=== PATIENT | female | born 1995 | race Caucasian/White ===

== ENCOUNTER 2017-03-07 10:44 | Outpatient (CLI) | payer BC ==
[2017-03-07 13:04] LABS: RUPTURE FETAL MEMBRANES POSITIVE (NEGATIVE)
== END 2017-03-07 18:45 | disposition home or self-care (01) ==
LOC: OBT 10:44 → L-D 10:44 → OBT 18:45
DX: O26.893 Other specified pregnancy related conditions, third trimester (principal); Z3A.38 38 weeks gestation of pregnancy; T17.990A Other foreign object in respiratory tract, part unspecified in causing asphyxiation, initial encounter; X58.XXXA Exposure to other specified factors, initial encounter
CPT/HCPCS: 76815; 84112

== ENCOUNTER 2017-03-08 03:18 | Inpatient (IN) | payer BC ==
[2017-03-08] MEDS ORDERED: LIDOCAINE 1% (MPF) 30 ML INJ INJ (04:00)
[2017-03-08] MEDS ORDERED: BUTORPHANOL 2 MG INJ IV (04:00)
[2017-03-08] MEDS ORDERED: OXYTOCIN 30 UNITS/LR 500 ML IV ×2 (04:00→10:30)
[2017-03-08] MEDS ORDERED: IBUPROFEN 600 MG TAB PO (04:00)
[2017-03-08] MEDS ORDERED: MISOPROSTOL 200 MCG TAB PR ×2 (04:00→10:30)
[2017-03-08] MEDS ORDERED: CARBOPROST 250 MCG INJ IM ×2 (04:00→10:30)
[2017-03-08] MEDS ORDERED: METHYLERGONOVINE 0.2 MG INJ IM ×2 (04:00→10:30)
[2017-03-08] MEDS: LACTATED RINGER'S 1,000 ML IV ×2 (05:13→06:13)
[2017-03-08 05:24] LABS: ADD MAN DIFF? NO
[2017-03-08 05:31] LABS: BASOPHILS % 0.2 % (0.0-2.0); EOSINOPHILS % 0.3 % (0.0-7.0); HEMATOCRIT 40.5 % (37.0-47.0); HEMOGLOBIN 14.2 g/dl (12.0-16.0); LYMPHOCYTES # 1.9 10^3/ul (0.8-2.9); LYMPHOCYTES % 17.7 % (15.0-51.0); MEAN CORPUSCULAR HEMOGLOBIN 29.3 pg (29.0-33.0); MEAN CORPUSCULAR HGB CONC 35.1 g/dl (32.0-37.0); MEAN CORPUSCULAR VOLUME 83.5 fl (82.0-101.0); MEAN PLATELET VOLUME 10.8 fl (7.4-10.4); MONOCYTE # 0.6 10^3/ul (0.3-0.9); MONOCYTES % 5.8 % (0.0-11.0); NEUTROPHIL # 8.2 10^3/ul (1.6-7.5); NEUTROPHILS % 75.3 % (39.0-77.0); PLATELET COUNT 190 10^3/UL (140-415); RED BLOOD COUNT 4.85 10^6/ul (4.20-5.40); RED CELL DISTRIBUTION WIDTH 13.2 % (11.5-14.5)
[2017-03-08 05:31] LABS: WHITE BLOOD COUNT 10.9 10^3/ul (4.8-10.8)
[2017-03-08 06:06] LABS: URIC ACID 4.6 mg/dl (3.1-7.9)
[2017-03-08 06:07] LABS: ALANINE AMINOTRANSFERASE 21 IU/L (13-69); ALBUMIN 3.5 g/dl (3.3-4.9); ALBUMIN/GLOBULIN RATIO 1.06; ALKALINE PHOSPHATASE 177 IU/L (42-121); ANION GAP 15 (8-16); ASPARTATE AMINO TRANSFERASE 17 IU/L (15-46); BILIRUBIN,INDIRECT 0.3 mg/dl (0-1.1); BILIRUBIN,TOTAL 0.3 mg/dl (0.2-1.3); BLOOD UREA NITROGEN 7 mg/dl (7-20); CALCIUM 9.4 mg/dl (8.4-10.2); CARBON DIOXIDE 23 mmol/L (21-31); CHLORIDE 103 mmol/L (97-110); GLUCOSE 139 mg/dl (70-220); POTASSIUM 3.8 mmol/L (3.5-5.1); SODIUM 137 mmol/L (135-144); TOTAL PROTEIN 6.8 g/dl (6.1-8.1)
[2017-03-08 06:11] LABS: INR 0.95; PROTIME 12.8 Sec (11.9-14.9)
[2017-03-08 06:12] LABS: PARTIAL THROMBOPLASTIN TIME 30.2 Sec (25.0-35.0)
[2017-03-08 06:37] LABS: HEPATITIS B SURFACE ANTIGEN NEGATIVE (NEGATIVE)
[2017-03-08] MEDS: OXYTOCIN 30 UNITS/LR 500 ML IV ×2 (08:21→08:49)
[2017-03-08] MEDS ORDERED: OXYCODONE/ASPIRIN (4.88/325) TAB PO ×2 (10:30)
[2017-03-08] MEDS ORDERED: ZOLPIDEM 5 MG TAB PO (10:30)
[2017-03-08] MEDS: BENZOCAINE 20% 56 ML SPRAY TOP (11:30)
[2017-03-08] MEDS: IBUPROFEN 600 MG TAB PO ×3 (11:30→23:42)
[2017-03-08] MEDS: LANOLIN 7 GM TUBE TOP (11:30)
[2017-03-08] MEDS: WITCH HAZEL/GLYCERIN PAD PR (11:30)
[2017-03-08] MEDS: ACCU-CHEK XX ×2 (14:50→20:26)
[2017-03-08] MEDS: SENNA/DOCUSATE NA (8.6MG/50MG) TAB PO (21:21)
[2017-03-08 22:34] LABS: RAPID PLASMA REAGIN NONREACTIVE (NR)
[2017-03-09] MEDS: IBUPROFEN 600 MG TAB PO ×4 (05:39→23:59)
[2017-03-09] MEDS: ACCU-CHEK XX ×5 (07:30→20:05)
[2017-03-09 08:39] LABS: ADD MAN DIFF? NO
[2017-03-09] MEDS: SENNA/DOCUSATE NA (8.6MG/50MG) TAB PO ×2 (08:45→20:28)
[2017-03-09 08:48] LABS: WHITE BLOOD COUNT 10.6 10^3/ul (4.8-10.8)
[2017-03-09 08:48] LABS: BASOPHILS % 0.3 % (0.0-2.0); EOSINOPHILS # 0.1 10^3/ul (0.0-0.5); EOSINOPHILS % 0.9 % (0.0-7.0); HEMATOCRIT 38.1 % (37.0-47.0); HEMOGLOBIN 12.8 g/dl (12.0-16.0); LYMPHOCYTES % 28.1 % (15.0-51.0); MEAN CORPUSCULAR HEMOGLOBIN 29.4 pg (29.0-33.0); MEAN CORPUSCULAR HGB CONC 33.6 g/dl (32.0-37.0); MEAN CORPUSCULAR VOLUME 87.4 fl (82.0-101.0); MEAN PLATELET VOLUME 10.6 fl (7.4-10.4); MONOCYTE # 0.7 10^3/ul (0.3-0.9); MONOCYTES % 6.4 % (0.0-11.0); NEUTROPHIL # 6.7 10^3/ul (1.6-7.5); NEUTROPHILS % 63.6 % (39.0-77.0); PLATELET COUNT 145 10^3/UL (140-415); RED BLOOD COUNT 4.36 10^6/ul (4.20-5.40); RED CELL DISTRIBUTION WIDTH 13.5 % (11.5-14.5)
[2017-03-09] MEDS: metFORMIN (XR) 500 MG TAB PO (18:46)
[2017-03-10] MEDS: IBUPROFEN 600 MG TAB PO ×2 (05:45→11:38)
[2017-03-10] MEDS: ACCU-CHEK XX ×4 (07:30→11:38)
[2017-03-10] MEDS: DIPHTH/TET/ACEL PERTUSS (ADULT) 0.5 ML VIAL IM* (09:01)
[2017-03-10] MEDS: SENNA/DOCUSATE NA (8.6MG/50MG) TAB PO (09:01)
[2017-03-10] MEDS: metFORMIN (XR) 500 MG TAB PO (09:02)
== END 2017-03-10 15:00 | disposition home or self-care (01) | DRG 775 ==
LOC: OBT 03:18 → L-D 03:23 → OBT 04:25 → L-D 04:25 → PP1 10:48
PROVIDERS: Obstetrics & Gynecology
PROC: 10E0XZZ Delivery of Products of Conception, External Approach (ICD-10-PCS; principal; 2017-03-08)
PROC: 0UQMXZZ Repair Vulva, External Approach (ICD-10-PCS; 2017-03-08)
PROC: 3E033VJ Introduction of Other Hormone into Peripheral Vein, Percutaneous Approach (ICD-10-PCS; 2017-03-08)
DX: O71.82 Other specified trauma to perineum and vulva (principal); O24.429 Gestational diabetes mellitus in childbirth, unspecified control; O69.81X0 Labor and delivery complicated by cord around neck, without compression, not applicable or unspecified; Z3A.38 38 weeks gestation of pregnancy; Z37.0 Single live birth
CPT/HCPCS: 76815; 80053; 82962; 84560; 85025; 85610; 85730; 86592; 86850; 86900; 86901; 87340; 90715; 99464